=== PATIENT | female | born 1950 | race Caucasian/White ===

== ENCOUNTER → 2016-08-03 | Outpatient (CLI) | payer MEDICARE ==
--- NOTE | 2016-08-04 09:59 | MM ---
Reason for exam: screening (asymptomatic). Last mammogram was performed 1 year and 1 month ago. History: Patient is postmenopausal. Family history of breast cancer in grandmother at age 45. Physical Findings: A clinical breast exam by your physician is recommended on an annual basis and results should be correlated with mammographic findings. MG 3D Screening Mammo W/Cad Bilateral CC and MLO view(s) were taken. Prior study comparison: July 17, 2015, bilateral MG screening mammo w CAD. April 26, 2014, bilateral MG screening mammo w CAD. No significant changes when compared with prior studies. ASSESSMENT: Benign, BI-RAD 2 RECOMMENDATION: Routine screening mammogram of both breasts in 1 year.
== END | disposition home or self-care (01) ==
LOC: RADMAMWWP 14:48
PROVIDERS: ATTEND Family Medicine
DX: Z12.31 Encounter for screening mammogram for malignant neoplasm of breast (principal)
CPT/HCPCS: 77063; G0202

== ENCOUNTER 2016-12-05 00:49 | Emergency (ER) | payer MEDICARE ==
[2016-12-05 00:58] VITALS: RESP 18
[2016-12-05] MEDS ORDERED: KETOROLAC 30 MG/ML 1 ML VIAL IM STA (01:59)
[2016-12-05] MEDS ORDERED: KETOROLAC 30 MG/ML 1 ML VIAL IVP STA (02:04)
--- NOTE | 2016-12-05 02:07 | ED ---
General Adult HPI - General Chief complaint: Neck Pain/Injury Stated complaint: back/neck pain Time Seen by Provider: 12/05/16 01:22 Source: patient, RN notes reviewed Mode of arrival: ambulatory Limitations: no limitations - History of Present Illness Initial comments: Patient is a 66-year-old female presents to the emergency room for evaluation of neck pain and right sided rib pain. Patient states pain began earlier today. Patient states she has pain under her clavicle and on the lateral portion of her right ribs. Patient states her pain is worse when she takes a deep breath. patient denies shortness of breath. Patient states it just hurts to breathe. Patient denies chest pain. Patient denies history of cardiac or lung issues. Patient denies history of PEs. Patient denies taking any blood thinners. Patient denies taking anything for pain. Patient denies headache or dizziness. Patient denies cough. Patient denies fevers or chills. Patient denies recent heavy lifting or changes in physical activity. Patient denies recent trauma to her ribs or neck. - Related Data Home Medications Medication Instructions Recorded Confirmed Aspirin EC [Ecotrin] 325 mg PO DAILY 07/29/15 12/05/16 Lisinopril [Zestril] 20 mg PO DAILY 07/29/15 12/05/16 Multivitamins, Thera [Multivitamin] 1 tab PO DAILY 07/29/15 12/05/16 Sertraline [Zoloft] 150 mg PO DAILY 07/29/15 12/05/16 Allergies Allergy/AdvReac Type Severity Reaction Status Date / Time No Known Allergies Allergy Verified 12/05/16 00:58 Review of Systems ROS Statement: Those systems with pertinent positive or pertinent negative responses have been documented in the HPI. ROS Other: All systems not noted in ROS Statement are negative. Past Medical History Past Medical History: Hypertension History of Any Multi-Drug Resistant Organisms: None Reported Past Surgical History: Cholecystectomy Past Anesthesia/Blood Transfusion Reactions: No Reported Reaction, Family History of Problems w/ Anesthesia, Motion Sickness Additional Past Anesthesia/Blood Transfusion Reaction / Comment(s): BROTHER = PROBLEMS WAKING UP. Past Psychological History: Anxiety, Depression Smoking Status: Never smoker Past Alcohol Use History: Rare Past Drug Use History: None Reported - Past Family History Mother Family Medical History: Cancer Additional Family Medical History / Comment(s): KIDNEY CANCER Father Family Medical History: Myocardial Infarction ([place]) General Exam - General Exam Comments Initial Comments: laying in exam room, no distress. Limitations: no limitations General appearance: alert, in no apparent distress Head exam: Present: atraumatic, normocephalic, normal inspection Eye exam: Present: normal appearance ENT exam: Present: normal exam Neck exam: Present: normal inspection Respiratory exam: Present: normal lung sounds bilaterally, chest wall tenderness (tenderness on palpating over the lateral and posterior right ribs). Absent: respiratory distress Cardiovascular Exam: Present: regular rate, normal rhythm, normal heart sounds Extremities exam: Present: normal inspection Back exam: Present: normal inspection Neurological exam: Present: alert, oriented X3, CN II-XII intact, normal gait Psychiatric exam: Present: normal affect, normal mood Skin exam: Present: warm, dry, intact, normal color. Absent: rash Course Vital Signs 12/05/16 12/05/16 00:54 03:55 Temperature 99.5 F 98.6 F Pulse Rate 88 74 Respiratory 18 18 Rate Blood Pressure 155/71 156/73 O2 Sat by Pulse 96 97 Oximetry EKG Findings - EKG Comments: EKG Findings:: Normal sinus rhythm, ventricular rate 74 bpm, VA interval 146, QRS duration 84 ms, QT/QTC 370/410 ms Medical Decision Making - Medical Decision Making patient is a 66-year-old female presents to the emergency room for evaluation of right-sided anterior chest/rib pain. Patient states pain is worse with taking a deep breath. Pain is reproducible on palpation. D-dimer elevated. CT angiogram chest negative for PE. Patient states symptoms have improved after given Toradol. Patient's symptoms consistent with pleuritic pain. Patient states she has ibuprofen at home. Advised patient to follow-up with primary care provider in 24-48 hours for reevaluation. Advised patient to return for any worsening symptoms. Patient states she understands everything that was discussed with her. Case discussed Dr. Wilkinson. - Lab Data Result diagrams: 12/05/16 02:27 12/05/16 02:27 Lab Results 12/05/16 12/05/16 12/05/16 Range/Units 02:27 02:27 02:27 WBC 9.0 (3.8-10.6) k/uL RBC 4.72 (3.80-5.40) m/uL Hgb 13.2 (11.4-16.0) gm/dL Hct 40.1 (34.0-46.0) % MCV 85.0 (80.0-100.0) fL MCH 27.9 (25.0-35.0) pg MCHC 32.8 (31.0-37.0) g/dL RDW 14.8 (11.5-15.5) % Plt Count 212 (150-450) k/uL Neutrophils % 69 % Lymphocytes % 22 % Monocytes % 6 % Eosinophils % 1 % Basophils % 1 % Neutrophils # 6.2 (1.3-7.7) k/uL Lymphocytes # 2.0 (1.0-4.8) k/uL Monocytes # 0.5 (0-1.0) k/uL Eosinophils # 0.1 (0-0.7) k/uL Basophils # 0.0 (0-0.2) k/uL D-Dimer 1.01 H (<0.60) mg/L FEU Sodium 144 (137-145) mmol/L Potassium 4.4 (3.5-5.1) mmol/L Chloride 111 H (98-107) mmol/L Carbon Dioxide 23 (22-30) mmol/L Anion Gap 10 mmol/L BUN 19 H (7-17) mg/dL Creatinine 0.80 (0.52-1.04) mg/dL Est GFR (MDRD) Af Amer >60 (>60 ml/min/1.73 sqM) Est GFR (MDRD) Non-Af >60 (>60 ml/min/1.73 sqM) Glucose 93 (74-99) mg/dL Calcium 9.7 (8.4-10.2) mg/dL Total Bilirubin 0.4 (0.2-1.3) mg/dL AST 27 (14-36) U/L ALT 39 (9-52) U/L Alkaline Phosphatase 94 (38-126) U/L Total Protein 6.5 (6.3-8.2) g/dL Albumin 3.9 (3.5-5.0) g/dL - Radiology Data Radiology results: report reviewed, image reviewed Disposition Clinical Impression: Pleuritic pain Disposition: HOME SELF-CARE Condition: Good Instructions: Pleurisy (ED) Additional Instructions: Take ibuprofen as needed for pain. Please follow up with primary care provider in 1-2 days. If any new symptom arises or symptoms worsen, return to ER as soon as possible. Referrals: Esme Luna MD [Primary Care Provider] - 1-2 days Time of Disposition: 04:08
--- NOTE | 2016-12-05 02:36 | XR ---
EXAM: XR Chest, 2 Views CLINICAL HISTORY: Pain TECHNIQUE: Frontal and lateral views of the chest. COMPARISON: No relevant prior studies available. FINDINGS: Lungs: Probable atelectasis and scarring within the right lower lung. Otherwise, the lungs are clear. Pleural space: Unremarkable. No pneumothorax. Heart: Unremarkable. No cardiomegaly. Mediastinum: Unremarkable. Bones/joints: Unremarkable. IMPRESSION: No acute findings.
[2016-12-05 02:45] LABS: Basophils % (A) 1 %; CH 28.6; CHCM 33.7; Eosinophils # (A) 0.1 k/uL (0-0.7); Eosinophils % (A) 1 %; HCT 40.1 % (34.0-46.0); HDW 2.88; HGB 13.2 gm/dL (11.4-16.0); Luc # (Auto) 0.11; Luc % (Auto) 1; Lymphocytes % (A) 22 %; MCH 27.9 pg (25.0-35.0); MCHC 32.8 g/dL (31.0-37.0); Mean Platelet Volume 7.7; Monocytes # (A) 0.5 k/uL (0-1.0); Monocytes % (A) 6 %; Neutrophils # (A) 6.2 k/uL (1.3-7.7); Neutrophils % (A) 69 %; RBC 4.72 m/uL (3.80-5.40); RDW 14.8 % (11.5-15.5); WBC (Perox) 8.67
[2016-12-05 03:01] LABS: ALT 39 U/L (9-52); AST 27 U/L (14-36); Alkaline Phosphatase 94 U/L (38-126); Anion Gap 10 mmol/L; Blood Urea Nitrogen 19 mg/dL (7-17); Calcium 9.7 mg/dL (8.4-10.2); Carbon Dioxide 23 mmol/L (22-30); Chloride 111 mmol/L (98-107); Glucose 93 mg/dL (74-99); Non-African American GFR(MDRD) >60 (>60 ml/min/1.73 sqM); Potassium 4.4 mmol/L (3.5-5.1); Sodium 144 mmol/L (137-145); Total Bilirubin 0.4 mg/dL (0.2-1.3); Total Protein 6.5 g/dL (6.3-8.2)
[2016-12-05] MEDS ORDERED: RX INFO: IV CONTRAST WAS GIVEN 1 EACH MISC MISCELLANE PRN (03:10)
[2016-12-05 03:56] VITALS: BP 156/73; PULSE 74; TEMP 98.6
--- NOTE | 2016-12-05 04:00 | CT ---
EXAM: CT Angiography Chest With Intravenous Contrast CLINICAL HISTORY: Pain TECHNIQUE: Axial computed tomographic angiography images of the chest with intravenous contrast using pulmonary embolism protocol. CTDI is 3.0, 62. 9, 13.80 mGy and DLP is 482.20 mGy-cm. This CT exam was performed using one or more of the following dose reduction techniques: automated exposure control, adjustment of the mA and/or kV according to patient size, and/or use of iterative reconstruction technique. MIP reconstructed images were created and reviewed. COMPARISON: No relevant prior studies available. FINDINGS: Pulmonary arteries: No evidence of pulmonary embolus. Aorta: No acute findings. No thoracic aortic aneurysm. Lungs: Elevated right hemidiaphragm with adjacent atelectasis. Probable atelectasis and scarring within the lingula and right middle lobe. No mass. Pleural space: Unremarkable. No significant effusion. No pneumothorax. Heart: Unremarkable. No cardiomegaly. No significant pericardial effusion. No evidence of RV dysfunction. Bones/joints: No acute fracture. No dislocation. Soft tissues: Unremarkable. Lymph nodes: Unremarkable. No enlarged lymph nodes. IMPRESSION: No evidence of pulmonary embolus. No acute findings.
== END 2016-12-05 04:25 | disposition home or self-care (01) ==
LOC: EC 00:49
DX: R07.81 Pleurodynia (principal); M54.2 Cervicalgia; R79.1 Abnormal coagulation profile; I10 Essential (primary) hypertension; F32.9 Major depressive disorder, single episode, unspecified; F41.9 Anxiety disorder, unspecified; Z79.82 Long term (current) use of aspirin; Z79.899 Other long term (current) drug therapy
CPT/HCPCS: 99284; 96374; 36415; 93005; 85379; 80053; 85025; 71020; 71275; Q9967; J1885

== ENCOUNTER → 2017-08-20 | Outpatient (CLI) | payer MEDICARE ==
--- NOTE | 2017-08-20 15:49 | BD ---
EXAMINATION TYPE: MG DEXA axial skeleton. DATE OF EXAM: 08/20/2017 COMPARISON: NONE CLINICAL HISTORY: Height: 5 FT 3 IN Weight: 210 FRAX RISK QUESTIONS: Alcohol (3 or more units per day): NO Family History (Parent hip fracture): NO Glucocorticoids (More than 3mos): NO (Ex: prednisone, prednisolone, methylprednisolone, dexamethasone, and hydrocortisone). History of Fracture in Adulthood: NO Secondary Osteoporosis: 1. Type 1 Diabetes: NO 2. Hyperthyroidism: NO 3. Menopause before 45: NO 4. Malnutrition: NO 5. Chronic liver disease: NO Rheumatoid Arthritis: NO Current Tobacco Use: NO RISK FACTORS HISTORY OF: Family History of Osteoporosis: YES Active: NO Postmenopausal woman: AGE 54 MEDICATIONS: Additional Medications: LISINOPRIL,ZOLOFT ,MULTI VIT Additional History: EXAM MEASUREMENTS: Bone mineral densitometry was performed using the [employer] System. Bone mineral density as measured about the Lumbar spine is: ----- L1-L4(G/cm2): 1.215 T Score Values are as follows: ----- L2: 0.2 ----- L3: -0.1 ----- L4: 0.3 ----- L1-L4: 0.3 BASELINE Bone mineral density about the R hip (g/cm2): 0.799 Bone mineral density about the L hip (g/cm2): 0.684 T Score values are as follows: -----R Neck: -1.7 -----L Neck: -2.5 -----R Total: -1.1 -----L Total: -1.1 BASELINE IMPRESSION: Osteopenia bilateral femora. Increased fracture risk. NOTE: T-SCORE=SD OF THE YOUNG ADULT MEAN.
--- NOTE | 2017-08-24 09:02 | MM ---
Reason for exam: screening (asymptomatic). Last mammogram was performed 1 year and 1 month ago. History: Patient is postmenopausal. Family history of breast cancer in grandmother at age 45. Physical Findings: A clinical breast exam by your physician is recommended on an annual basis and results should be correlated with mammographic findings. MG 3D Screening Mammo W/Cad Bilateral CC and MLO view(s) were taken. XCCL view(s) were taken of the right breast. CV view(s) were taken of the left breast. Prior study comparison: August 03, 2016, bilateral MG 3d screening mammo w/cad. July 17, 2015, bilateral MG screening mammo w CAD. There are scattered fibroglandular densities. There is chronic nodularity in the right breast. No significant changes when compared with prior studies. ASSESSMENT: Negative, BI-RAD 1 RECOMMENDATION: Routine screening mammogram of both breasts in 1 year.
== END | disposition home or self-care (01) ==
LOC: RADMAMWWP 14:20
PROVIDERS: ATTEND Family Medicine
DX: Z12.31 Encounter for screening mammogram for malignant neoplasm of breast (principal); M85.852 Other specified disorders of bone density and structure, left thigh; M85.851 Other specified disorders of bone density and structure, right thigh
CPT/HCPCS: 77063; 77067; 77080

== ENCOUNTER → 2018-08-22 | Outpatient (CLI) | payer MEDICARE ==
--- NOTE | 2018-08-23 11:35 | MM ---
Reason for exam: screening (asymptomatic). Last mammogram was performed 1 year ago. History: Patient is postmenopausal. Family history of breast cancer in grandmother at age 45. Physical Findings: A clinical breast exam by your physician is recommended on an annual basis and results should be correlated with mammographic findings. MG 3D Screening Mammo W/Cad Bilateral CC and MLO view(s) were taken. Prior study comparison: August 20, 2017, bilateral MG 3d screening mammo w/cad. August 03, 2016, bilateral MG 3d screening mammo w/cad. The breast tissue is heterogeneously dense. This may lower the sensitivity of mammography. No suspicious abnormality. No significant changes when compared with prior studies. ASSESSMENT: Negative, BI-RAD 1 RECOMMENDATION: Routine screening mammogram of both breasts in 1 year.
== END | disposition home or self-care (01) ==
LOC: RADMAMWWP 10:02
PROVIDERS: ATTEND Family Medicine
DX: Z12.31 Encounter for screening mammogram for malignant neoplasm of breast (principal)
CPT/HCPCS: 77063; 77067

== ENCOUNTER 2019-11-08 13:54 | Emergency (ER) | payer MEDICARE ==
[2019-11-08 14:18] VITALS: BP 138/82; PULSE 82; RESP 18; TEMP 97.9
[2019-11-08] MEDS ORDERED: ACETAMINOPHEN TAB 325 MG TAB PO STA (14:32)
--- NOTE | 2019-11-08 14:53 | XR ---
EXAMINATION TYPE: XR Hip RT and AP Pelvis DATE OF EXAM: 11/08/2019 CLINICAL HISTORY: pain TECHNIQUE: Single view the pelvis is submitted. 2 views of the right hip are also submitted. FINDINGS: No evidence for fracture, dislocation or bony lesion. Mild degenerative joint space narrow ing is noted. SI joints appear symmetric. IMPRESSION: 1. No acute fracture or dislocation seen. ICD 10 NO FRACTURE, INITIAL EVALUATION
--- NOTE | 2019-11-08 15:11 | ED ---
General Adult HPI - General Chief complaint: Extremity Injury, Lower Stated complaint: Hip injury Time Seen by Provider: 11/08/19 14:14 Source: patient, RN notes reviewed, old records reviewed - History of Present Illness Initial comments: 69-year-old female patient presents to ED for evaluation of right hip pain. Patient reports that she was walking and began hurting reports that she was feeling better today and she is working in her yard. She reports that she pulled on a hose and twisted her right hip and now having some lateral right hip pain. Denies any falls or trauma. Denies any other complaints. Systemic: Pt denies fatigue, fever/chills, rash. Pt denies weakness, night sweats, weight loss. Neuro: Pt denies headache, visual disturbances, syncope or pre-syncope. HEENT: Pt denies ocular discharge or irritation, otalgia, rhinorrhea, pharyngitis or notable lymphadenopathy. Cardiopulmonary: Pt denies chest pain, SOB, heart palpitations, dyspnea on exertion. Abdominal/GI: Pt denies abdominal pain, n/v/d. : Pt denies dysuria, burning w/ urination, frequency/urgency. Denies new onset urinary or bowel incontinence. MSK: Pt denies loss of strength or function in extremities. Neuro: Pt denies new onset weakness, paresthesias. - Related Data Home Medications Medication Instructions Recorded Confirmed Aspirin EC [Ecotrin] 325 mg PO DAILY 07/29/15 12/05/16 Lisinopril [Zestril] 20 mg PO DAILY 07/29/15 12/05/16 Multivitamins, Thera [Multivitamin] 1 tab PO DAILY 07/29/15 12/05/16 Sertraline [Zoloft] 150 mg PO DAILY 07/29/15 12/05/16 Allergies Allergy/AdvReac Type Severity Reaction Status Date / Time No Known Allergies Allergy Verified 11/08/19 14:18 Review of Systems ROS Statement: Those systems with pertinent positive or pertinent negative responses have been documented in the HPI. ROS Other: All systems not noted in ROS Statement are negative. Past Medical History Past Medical History: Hypertension History of Any Multi-Drug Resistant Organisms: None Reported Past Surgical History: Cholecystectomy Past Anesthesia/Blood Transfusion Reactions: No Reported Reaction, Family History of Problems w/ Anesthesia, Motion Sickness Additional Past Anesthesia/Blood Transfusion Reaction / Comment(s): BROTHER = PROBLEMS WAKING UP. Past Psychological History: Anxiety, Depression Smoking Status: Never smoker Past Alcohol Use History: Rare Past Drug Use History: None Reported - Past Family History Mother Family Medical History: Cancer Additional Family Medical History / Comment(s): KIDNEY CANCER Father Family Medical History: Myocardial Infarction ([place]) General Exam - General Exam Comments Initial Comments: Constitutional: NAD, AOX3, Pt has pleasant affect. HEENT: NC/AT, trachea midline, neck supple. External ears appear normal, without discharge. Mucous membranes moist. EOM intact. There is no scleral icterus. No pallor noted. Cardiopulmonary: RRR, no murmurs, rubs or gallops, no JVD noted. Lungs CTAB in anterior and posterior recio. No peripheral edema. Abdominal exam: Abdomen soft and non-distended. Abdomen non-tender to palpation in all 4 quadrants. Bowel sounds active in LLQ. Neuro: CN II-XII grossly intact. No nuchal rigidity. No raccon eyes, no roque sign, MSK: No posterior calf tenderness bilaterally, homans sign negative bilaterally. Posterior tibialis and radial pulse +2 bilaterally. Sensation intact in upper and lower extremities. Full active ROM in upper and lower extremities. Right lateral hip mildly tender to palpation. No external skin changes. Ambulatory. Course Vital Signs 11/08/19 11/08/19 14:11 14:19 Temperature 97.9 F 97.9 F Pulse Rate 82 82 Respiratory 18 18 Rate Blood Pressure 138/82 138/82 O2 Sat by Pulse 95 95 Oximetry Medical Decision Making - Medical Decision Making 69-year-old female patient presents to ED complaining of right hip pain following twisting earlier today. Patient vital signs are stable, afebrile. Physical exam: Mild tenderness to right lateral hip region. skin changes. plain films displayed mild degenerative joint space narrowing. patient was discharged to follow-up with primary care provider and will return to er if condition worsens. case discussed with Dr. Swanson. Disposition Clinical Impression: Hip strain Disposition: HOME SELF-CARE Condition: Stable Instructions (If sedation given, give patient instructions): Hip Sprain (ED) Additional Instructions: Follow-up primary care provider tomorrow. May use Tylenol and Motrin as needed for pain. Return to ER if condition worsens. Is patient prescribed a controlled substance at d/c from ED?: No Referrals: Esme Luna MD [Primary Care Provider] - 1-2 days
== END 2019-11-08 15:23 | disposition home or self-care (01) ==
LOC: EC 13:54
DX: S76.011A Strain of muscle, fascia and tendon of right hip, initial encounter (principal); I10 Essential (primary) hypertension; F41.9 Anxiety disorder, unspecified; F32.9 Major depressive disorder, single episode, unspecified; Z79.82 Long term (current) use of aspirin; Z79.899 Other long term (current) drug therapy; X50.1XXA Overexertion from prolonged static or awkward postures, initial encounter; Y93.01 Activity, walking, marching and hiking
CPT/HCPCS: 73502; 99284

== ENCOUNTER → 2020-05-15 | Outpatient (CLI) | payer MEDICARE ==
--- NOTE | 2020-05-17 12:02 | MM ---
Reason for exam: screening (asymptomatic). Last mammogram was performed 1 year and 9 months ago. History: Patient is postmenopausal. Family history of breast cancer in grandmother at age 45. Physical Findings: A clinical breast exam by your physician is recommended on an annual basis and results should be correlated with mammographic findings. MG 3D Screening Mammo W/Cad Bilateral CC and MLO view(s) were taken. XCCL view(s) were taken of the right breast. Prior study comparison: August 22, 2018, bilateral MG 3d screening mammo w/cad. August 20, 2017, bilateral MG 3d screening mammo w/cad. There are scattered fibroglandular densities. No significant changes when compared with prior studies. ASSESSMENT: Benign, BI-RAD 2 RECOMMENDATION: Routine screening mammogram of both breasts in 1 year.
== END | disposition home or self-care (01) ==
LOC: RADMAMWWP 12:07
PROVIDERS: ATTEND Family Medicine
DX: Z12.31 Encounter for screening mammogram for malignant neoplasm of breast (principal)
CPT/HCPCS: 77063; 77067

== ENCOUNTER → 2021-07-21 | Outpatient (CLI) | payer MEDICARE ==
--- NOTE | 2021-07-21 15:03 | XR ---
EXAMINATION TYPE: XR shoulder complete BILAT DATE OF EXAM: 07/21/2021 CLINICAL HISTORY: pain TECHNIQUE: Three views of the bilateral shoulders are obtained. COMPARISON: None FINDINGS: There is no acute fracture/dislocation evident. The acromioclavicular and glenohumeral zacarias int spaces appear mildly narrowed. Spur formation left humeral head. The visualized ribs are intact and unremarkable. IMPRESSION: 1. There is no acute fracture or dislocation. ICD 10 NO FRACTURE, INITIAL EVALUATION
--- NOTE | 2021-07-22 19:36 | BD ---
EXAMINATION TYPE: Axial Bone Density DATE OF EXAM: 07/21/2021 COMPARISON: 08/20/2017 CLINICAL HISTORY: Postmenopausal screening Height: 63.2 IN Weight: 205 LBS RISK FACTORS HISTORY OF: Family History of Osteoporosis: YES MOTHER Active: YES Postmenopausal woman: AGE 55 MEDICATIONS: Additional Medications: MULTI VIT, LISINOPRIL, STATIN, ANXIETY MED EXAM MEASUREMENTS: Bone mineral densitometry was performed using the [employer] System. Bone mineral density as measured about the Lumbar spine is: ----- L1-L4(G/cm2): 1.143 T Score Values are as follows: ----- L2: -0.3 ----- L3: -0.4 ----- L4: 0.1 ----- L1-L4: -0.4 Bone mineral density has: Decreased -3.7% since study of: 08/20/2017 Bone mineral density about the R hip (g/cm2): 0.746 Bone mineral density about the L hip (g/cm2): 0.676 T Score values are as follows: -----R Neck: -2.1 -----L Neck: -2.6 -----R Total: -1.4 -----L Total: -1.3 Bone mineral density has: Decreased -4.0% since study of: 08/20/2017 IMPRESSION: Osteoporosis (T Score less than -2.5). There is increased fracture risk and therapy is usually indicated based on age. Re-Screen 1-2 years. NOTE: T-SCORE=SD OF THE YOUNG ADULT MEAN.
== END | disposition home or self-care (01) ==
LOC: RADBDWWP 14:24
PROVIDERS: ATTEND Family Medicine
DX: M81.0 Age-related osteoporosis without current pathological fracture (principal); M25.511 Pain in right shoulder; M25.512 Pain in left shoulder
CPT/HCPCS: 77080

== ENCOUNTER → 2021-07-25 | Outpatient (CLI) | payer MEDICARE ==
--- NOTE | 2021-07-29 13:40 | MM ---
Reason for exam: screening (asymptomatic). Last mammogram was performed 1 year and 2 months ago. History: Patient is postmenopausal. Family history of breast cancer in grandmother at age 45. Physical Findings: A clinical breast exam by your physician is recommended on an annual basis and results should be correlated with mammographic findings. MG 3D Screening Mammo W/Cad Bilateral CC and MLO view(s) were taken. Prior study comparison: May 15, 2020, bilateral MG 3d screening mammo w/cad. August 22, 2018, bilateral MG 3d screening mammo w/cad. There are scattered fibroglandular densities. Stable areas of bilateral asymmetric densities. No significant changes when compared with prior studies. ASSESSMENT: Benign, BI-RAD 2 RECOMMENDATION: Routine screening mammogram of both breasts in 1 year.
== END | disposition home or self-care (01) ==
LOC: RADMAMWWP 15:46
PROVIDERS: ATTEND Family Medicine
DX: Z12.31 Encounter for screening mammogram for malignant neoplasm of breast (principal); Z80.3 Family history of malignant neoplasm of breast; Z78.0 Asymptomatic menopausal state
CPT/HCPCS: 77063; 77067